=== PATIENT | female | born 1950 | race Asian ===

== ENCOUNTER 2016-11-04 19:46 | Emergency (ER) | payer OTHER, BC ==
[~2016-11-04] VITALS: Ht 152.4 cm; Wt 63.8 kg
[2016-11-04] MEDS ORDERED: ATORVASTATIN CA10 MG PO (20:30)
[2016-11-04] MEDS ORDERED: AMLODIPINE BESY10 MG PO (20:30)
[2016-11-04] MEDS ORDERED: STOOL SOFTENER PO (20:31)
[2016-11-04] MEDS ORDERED: PREDNISONE20 MG PO (22:27)
[2016-11-04] MEDS ORDERED: NORCO 5/3251 TABLET PO (22:27)
[2016-11-04] MEDS ORDERED: TORADOL10 MG PO (22:33)
[2016-11-04 22:59] VITALS: BP 132/78
== END 2016-11-04 23:00 | disposition home or self-care (01) ==
LOC: EME 19:46
DX: R20.2 Paresthesia of skin (principal); M79.641 Pain in right hand; I10 Essential (primary) hypertension
CPT/HCPCS: 99281; 99284; J7512